=== PATIENT | male | born 1955 | race Caucasian/White ===

== ENCOUNTER 2016-12-27 11:28 | Day surgery (SDC) | payer OTHER ==
[~2016-12-27] VITALS: Ht 180.3 cm; Wt 82.0 kg
[~2016-12-27 11:28] MED LIST: 0.9% Sodium Chloride 1,000 ML IV PRN; LISI-571 PO; OMEP20TA24 PO; Sodium Chloride LOK Flush 10 mL Syringe IV PRN; fentaNYL-PF 50 mCg/mL 2 mL Inj IVPUSH PRN
[2016-12-27] MEDS ORDERED: LOSA25TA21 PO (11:48)
[2016-12-27 11:49] VITALS: BP 134/85; PULSE 74; RESP 16; O2SAT 97
[2016-12-27 13:01] VITALS: BP 67/45; PULSE 64; RESP 16; O2SAT 93
[2016-12-27 13:02] VITALS: BP 92/56; PULSE 62; RESP 16; O2SAT 93
[2016-12-27 13:09] VITALS: BP 99/58; PULSE 63; RESP 14; O2SAT 96
[2016-12-27 13:19] VITALS: BP 109/73; PULSE 70; RESP 16; O2SAT 95
--- NOTE | 2016-12-27 13:48 | ENDO ---
[address] [address] ENDOSCOPY PROCEDURE PATIENT: ANNEMARIE ALAN : 1955 MR#: [id number] ADMIT: 12/27/2016 JOB ID: [id number] DATE OF SERVICE: 12/27/2016 PRIMARY PROVIDER: Mary Jo Torres MD PROCEDURE: Esophagogastroduodenoscopy with biopsies and a colonoscopy with cold forceps polypectomy. INDICATIONS: A 61-year-old male with a personal history of [place]'s and multiple colon polyps, returning for surveillance. EQUIPMENT: PCFH-180AL and a GIFH-180 SEDATION: 6 mg Versed and 100 mcg fentanyl. COMPLICATIONS: None identified. BOWEL PREPARATION: Fair, adequate exam. PROCEDURE INFORMATION: After the risks and benefits were explained, written and verbal informed consent was obtained. The patient was brought into the endoscopy suite and placed into the left lateral decubitus position. Sedation was achieved as above. The scope was introduced into the mouth through the bite block, and advanced under direct visualization to the second portion of the duodenum. The scope was slowly withdrawn to carefully examine the mucosa for any defects or lesions. Retroflexed views were accomplished in the stomach. The stomach was decompressed. The scope removed. The patient who tolerated the procedure well. The patient was then turned around. A digital rectal examination accomplished. Mild internal hemorrhoids noted. The scope was introduced into the rectum and advanced to the cecum as identified by the appendiceal orifice and ileocecal valve. The scope was slowly withdrawn to carefully examine the mucosa for any defects or lesions. Multiple direct views were made through the dentate line for exclusion of pathology. The colon was decompressed. The scope removed. The patient tolerated the procedure well. FINDINGS: 1. Duodenum: This appeared visually unremarkable from the bulb through to the second portion. 2. Stomach: No ulcers, no outlet obstruction. No mass lesions apparent. No significant mucosal pathology throughout. Retroflexed views were unremarkable of the LES. 3. Esophagus: The diaphragmatic pinchcock was at approximately 38 cm from the incisors. The GE junction was at approximately 35 cm from the incisors and there was obvious [place]'s epithelium extending up to about 30 cm from the incisors. (This measured out to be C4 M5). I did not see any active ulcerations, nodularity or any concerning features to suggest neoplasia. Four quadrant biopsies were taken from 34, 32, and then 30 cm from the incisors. 4. Colon: There were five diminutive colon polyps ranging in size from 3-5 mm. These were removed using cold forceps. One of the fragments was removed but not retrieved. The patient had some diverticulosis in the left colon. Otherwise, no pathology throughout. ENDOSCOPIC DIAGNOSES: 1. Long segment [place]'s. 2. Hiatal hernia. 3. Multiple colon polyps. 4. Diverticulosis. 5. Hemorrhoids. RECOMMENDATIONS: 1. Await histopathology. 2. Repeat colonoscopy in three years. 3. Repeat EGD in three years as long as there are no dysplastic features histologically. 4. Continue anti-reflux regimen.
--- NOTE | 2016-12-29 17:51 | PATH ---
SURGICAL PATHOLOGY Attending Physician:Elizabeth Resendez CASE STATUS: Signed Out PATIENT NAME: ANNEMARIE ALAN PID: [id number] : 1955 DATE COLLECTED:12/27/2016 22:38 SPECIMEN: 1: Colon, Biopsy 2: Colon, Biopsy 3: Colon, Biopsy 4: Colon, Polyp CLINICAL HISTORY: 1). 34 BIOPSY 2). 32 BIOPSY 3). 30 BIOPSY 4). COLON POLYPS X5, ONE NOT RETRIEVED FINAL DIAGNOSIS: 1.ESOPHAGUS, 34 CM, BIOPSY: SPECIALIZED INTESTINAL METAPLASIA CONSISTENT WITH OROZCO' S ESOPHAGUS. INTESTINAL METAPLASIA IS PRESENT IN 1 OF 4 FRAGMENTS. Negative for dysplasia and malignancy. 2.ESOPHAGUS, 32 CM, BIOPSY: SPECIALIZED INTESTINAL METAPLASIA CONSISTENT WITH OROZCO' S ESOPHAGUS. INTESTINAL METAPLASIA IS PRESENT IN 4 OF 4 FRAGMENTS. Negative for dysplasia and malignancy. 3.ESOPHAGUS, 30 CM, BIOPSY: SQUAMOCOLUMNAR JUNCTIONAL MUCOSA WITH SPECIALIZED INTESTINAL METAPLASIA CONSISTENT WITH OROZCO' S ESOPHAGUS. INTESTINAL METAPLASIA IS PRESENT IN 3 OF 4 FRAGMENTS. Negative for dysplasia and malignancy. 4.COLON, POLYPS X5, 1 NOT RETRIEVED, BIOPSIES: TUBULAR ADENOMA IN 4 OF 4 FRAGMENTS. ICD10 K22.70 D12.6 GROSS DESCRIPTION: Received four formalin-filled containers, each labeled with the patient' s name: 1. In a container labeled "134 cm", the specimen consists of three portions of tissue which aggregate to 0.3 x 0.3 x 0.2 cm. The specimen is entirely submitted in cassette 1A. 2. In a container labeled "32 cm", the specimen consists of four tiny portions of tissue which aggregate to 0.3 x 0.2 x 0.1 cm. The specimen is entirely submitted in cassette 2A. 3. In a container labeled "30 cm", the specimen consists of four portions of tissue which aggregate to 0.2 x 0.2 x 0.2 cm. The specimen is entirely submitted in cassette 3A. 4. In a container labeled "colon polyps", the specimen consists of four portions of tissue which aggregate to 0.4 x 0.4 x 0.2 cm. The specimen is entirely submitted in cassette 4A. ([id number]) MICRO DESCRIPTION: See diagnosis. ICD-9 CODES: CPT CODES: 1: 80560 2: 81698 3: 58366 4: 24300 Electronically Signed Out Briana Ramirez MD [facility] [address], [place] [address] Technical component performed at [facility], [address], [place], [address]
== END 2016-12-27 23:59 | disposition home or self-care (01) ==
LOC: END 11:28
PROVIDERS: ATTEND Internal Medicine Gastroenterology
DX: Z12.11 Encounter for screening for malignant neoplasm of colon (principal); Z86.010 Personal history of colon polyps; D12.6 Benign neoplasm of colon, unspecified; K22.719 Barrett's esophagus with dysplasia, unspecified; K57.30 Diverticulosis of large intestine without perforation or abscess without bleeding; K64.8 Other hemorrhoids
CPT/HCPCS: 43239; 45380; 99153; G0500; J2250; J3010; J7030